=== PATIENT | male | born 1960 | race Caucasian/White ===

== ENCOUNTER → 2017-06-16 | Outpatient (CLI) | payer OTHER ==
[2017-06-16 07:37] LABS: Blood Urea Nitrogen 29 mg/dL (9-20)
--- NOTE | 2017-06-16 08:45 | CT ---
EXAMINATION TYPE: CT angio head DATE OF EXAM: 06/16/2017 COMPARISON: 2016 HISTORY: follow up to cerebral aneurysm (surgery in 2007) CT DLP: 2322 mGycm CONTRAST: [place] with 3-D reconstruction is performed and without and with IV Contrast, patient i njected with 100 mL of Omnipaque 350. Contrast CTA of the [place] was performed 3-D reconstruction imaging obtained at a separate workstation. Unenhanced CT portion of the study of the brain demonstrates a left frontal temporal craniotomy. Ther e is postoperative encephalomalacia left temporal lobe. Changes of aneurysm clipping. Small area of d ecreased attenuation is seen within the left frontal lobe unchanged from prior examination. No eviden ce for intracranial hemorrhage or extra-axial collection at this time. The remaining Vertebrobasilar system as well as intracranial portions of the internal carotid arterie s and their major tributaries are patent. I do not see evidence for sizable aneurysm or vascular mal formation. Please note MRI provides greater sensitivity and specificity. Visualized brain appears g rossly unremarkable. IMPRESSION: No evidence for sizable aneurysm or vascular malformation. Postoperative changes of aneu rysm clipping as discussed.
== END | disposition home or self-care (01) ==
LOC: RADCTMAIN 06:50
PROVIDERS: ATTEND Physician Assistant Medical
DX: I67.1 Cerebral aneurysm, nonruptured (principal); Z98.890 Other specified postprocedural states
CPT/HCPCS: 82565; 84520; 70496; 36415; Q9967

== ENCOUNTER 2017-06-18 06:27 | Day surgery (SDC) | payer OTHER ==
[2017-06-17 08:28] VITALS: BMI 28.0
[~2017-06-18 06:27] MED LIST: LACTATED RINGERS 1,000 ML IV SCH
[2017-06-18] MEDS ORDERED: LACTATED RINGERS 1,000 ML IV ONE (07:02)
[2017-06-18 07:12] VITALS: RESP 18; TEMP 97.6
[2017-06-18 07:17] LABS: Glucose,Whole Blood 128 mg/dL (75-99)
[2017-06-18] MEDS ORDERED: PROPOFOL 10 MG/ML 20 ML VIAL IV ONE (07:52)
[2017-06-18] MEDS ORDERED: LIDOCAINE 1% INJ 10MG/ML (20 ML MDV) ONE (07:52)
--- NOTE | 2017-06-18 07:55 | P.GSHP ---
History of Present Illness H&P Date: 06/18/17 Chief Complaint: Screening colonoscopy 's is a 57-year-old male referred by Dr. Elliott. Patient presents today for screening colonoscopy. He denies a significant GI complaints. 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 History of Any Multi-Drug Resistant Organisms: None Reported Past Surgical History: Heart Catheterization, Hernia Repair, Orthopedic Surgery Additional Past Surgical History / Comment(s): aneursym with clip placement, fx left wrist., feeding tube/later removed, Hx of trach. Past Anesthesia/Blood Transfusion Reactions: No Reported Reaction Past Psychological History: No Psychological Hx Reported Smoking Status: Former smoker Past Alcohol Use History: None Reported Additional Past Alcohol Use History / Comment(s): quit smoking about 32 yrs ago , smoked for < 10 yrs, 1 PPD Past Drug Use History: Marijuana Additional Drug Use History / Comment(s): occasional marijuana use - Past Family History Mother Family Medical History: Cancer Father Family Medical History: Cancer Brother(s) Family Medical History: Deep Vein Thrombosis (DVT) Medications and Allergies Home Medications Medication Instructions Recorded Confirmed Type Albuterol Nebulized [Ventolin 2.5 mg INHALATION DIRECTED PRN 06/07/15 History Nebulized] Lisinopril [Zestril] 10 mg PO HS 06/08/15 06/18/17 History Atorvastatin Calcium [Lipitor] 10 mg PO DAILY 12/24/15 06/18/17 History Empagliflozin/Linagliptin 1 each PO QAM 01/09/16 06/18/17 History [Glyxambi 25 mg-5 mg Tablet] metFORMIN HCL 1,000 mg PO BID 01/09/16 06/18/17 History Breo Inhaler (Unknown Dose) 1 puff INHALATION DAILY 06/17/17 06/18/17 History Allergies Allergy/AdvReac Type Severity Reaction Status Date / Time No Known Allergies Allergy Verified 06/18/17 07:08 Surgical - Exam Vital Signs Temp Pulse Resp BP Pulse Ox 97.6 F 76 18 141/82 93 L 06/18/17 07:09 06/18/17 07:09 06/18/17 07:09 06/18/17 07:09 06/18/17 07:09 - General well developed, no distress - Eyes PERRL - ENT normal pinna - Neck no masses - Respiratory normal expansion - Cardiovascular Rhythm: regular - Abdomen Abdomen: soft, non tender Results - Labs Abnormal Lab Results - Last 24 Hours (Table) 06/18/17 Range/Units 07:13 POC Glucose (mg/dL) 128 H (75-99) mg/dL Assessment and Plan Plan: We'll perform screening colonoscopy.
--- NOTE | 2017-06-18 08:18 | P.OP ---
Date of Procedure: 06/18/17 Preoperative Diagnosis: Screening colonoscopy Postoperative Diagnosis: Diverticulosis Right colon lipoma Procedure(s) Performed: Colonoscopy Anesthesia: MAC Surgeon: Yosi Angel Pathology: other (Right colon biopsies) Condition: stable Disposition: PACU Description of Procedure: The patient's placed on the endoscopy table in the lateral position. He received IV sedation. Digital rectal exam was performed which revealed no abnormalities. The flexible colonoscope was then placed patient anus passed throughout the entire colon. The ileocecal valve was visualized. The cecum, appeared normal. In the right colon there was a sub-mucosa lipoma seen this area is biopsied. The scope was withdrawn and in the transverse colon there was diverticulosis. In the descending sigmoid colon there is moderate diverticulosis. Scope was then brought back the rectum and this appeared normal. Scope was withdrawn for patient.
[2017-06-18 08:44] VITALS: BP 141/80; PULSE 80
== END 2017-06-18 08:56 | disposition home or self-care (01) ==
LOC: ORWHC2ENDO 06:27
PROVIDERS: ATTEND Surgery
DX: Z12.11 Encounter for screening for malignant neoplasm of colon (principal); K57.30 Diverticulosis of large intestine without perforation or abscess without bleeding; D17.79 Benign lipomatous neoplasm of other sites; I10 Essential (primary) hypertension; E11.9 Type 2 diabetes mellitus without complications; J44.9 Chronic obstructive pulmonary disease, unspecified; E78.5 Hyperlipidemia, unspecified; I69.311 Memory deficit following cerebral infarction; Z87.891 Personal history of nicotine dependence; Z79.899 Other long term (current) drug therapy; Z79.84 Long term (current) use of oral hypoglycemic drugs
CPT/HCPCS: 88305; 45380; J2001; J2704

== ENCOUNTER → 2018-06-22 | Outpatient (CLI) | payer OTHER ==
[2018-06-22 12:48] LABS: Blood Urea Nitrogen 23 mg/dL (9-20)
--- NOTE | 2018-06-22 13:55 | CT ---
EXAMINATION TYPE: CT angio head DATE OF EXAM: 06/22/2018 COMPARISON: 06/16/2017 HISTORY: 58-year-old male Follow up cerebral aneurysm. TECHNIQUE: Contiguous axial scanning of the head performed with IV Contrast, patient injected with 10 0 mL of Isovue 370. Coronal/sagittal MIP reconstructions performed. 3-D reconstructions generated on a dedicated independent workstation. CT DLP: 1473.5 mGycm Automated exposure control for dose reduction was used. FINDINGS: Left frontal craniotomy flap redemonstrated. Prior aneurysm clipping on the left near the cavernous sinus region. Stable encephalomalacia anterior left temporal lobe. The bilateral P1 segment posterior cerebral arteries are hypoplastic with persistent origins. The anterior circulation is dominant with small caliber to the vertebral and basilar arteries, unchan ged. No aneurysmal change seen. IMPRESSION: 1. PRIOR ANEURYSM CLIPPING LEFT ANTERIOR CIRCULATION WITH A LEFT FRONTAL CRANIOTOMY FLAP AND UNDERLYI NG ANTERIOR LEFT TEMPORAL LOBE ENCEPHALOMALACIA, ALL UNCHANGED. 2. RELATIVELY SMALLER CALIBER TO THE VERTEBRAL AND BASILAR ARTERIES ON A CONGENITAL BASIS OF QUESTION CLINICAL SIGNIFICANCE. QUERY ANY CHRONIC SYMPTOMS THAT WOULD SUGGEST VERTEBROBASILAR INSUFFICIENCY. 3. HYPOPLASTIC P1 SEGMENTS WITH PERSISTENT ORIGIN OF THE BILATERAL POSTERIOR CEREBRAL ARTERIES FROM THE ANTERIOR CIRCULATION. 4. NO NEW ANEURYSMAL CHANGE SEEN.
== END | disposition home or self-care (01) ==
LOC: RADCTMAIN 12:19
PROVIDERS: ATTEND Family Medicine
DX: G93.89 Other specified disorders of brain (principal); I67.1 Cerebral aneurysm, nonruptured
CPT/HCPCS: 82565; 84520; 70496; 36415; Q9967

== ENCOUNTER → 2020-06-26 | Outpatient (CLI) | payer OTHER ==
--- NOTE | 2020-06-26 09:32 | CT ---
EXAMINATION TYPE: CT brain wo con DATE OF EXAM: 06/26/2020 HISTORY: headaches, history of aneurysm repair CT DLP: 1034 mGycm. Automated Exposure Control for Dose Reduction was Utilized. TECHNIQUE: CT scan of the head is performed without contrast. COMPARISON: CTA head June 22, 2018. FINDINGS: Post left frontal craniotomy changes redemonstrated. There is no acute intracranial hemorr jo or new midline shift identified. Ventricles and sulci within normal limits in size for patient's age. Old infarct left temporal lobe redemonstrated. Left middle cerebral artery aneurysm clip again seen causing adjacent streak artifact. Old infarct left frontal lobe axial image 18 redemonstrated. M ild to moderate mucosal thickening involving the visualized portion of bilateral maxillary sinuses. V isualized globes are intact. IMPRESSION: No acute intracranial hemorrhage or midline shift. There is surgical change from left m iddle cerebral artery aneurysm treatment with old infarct left temporal lobe and smaller infarct deep left frontal region redemonstrated. No significant change from 2019 CTA study.
== END | disposition home or self-care (01) ==
LOC: RADCTMAIN 07:56
PROVIDERS: ATTEND Family Medicine
DX: I63.89 Other cerebral infarction (principal)
CPT/HCPCS: 70450

== ENCOUNTER → 2023-01-09 | Outpatient (CLI) | payer OTHER ==
[2023-01-09 09:25] LABS: African American GFR (CKD) >90 (>60 ml/min/1.73 sqM); Blood Urea Nitrogen 35 mg/dL (9-20); Non-African American GFR(CKD) 79 (>60 ml/min/1.73 sqM)
--- NOTE | 2023-01-09 10:04 | CT ---
EXAMINATION TYPE: CT brain w con DATE OF EXAM: 01/09/2023 COMPARISON: 06/26/2020 HISTORY: Follow up for brain surgery post bleed. CT DLP: 1168 mGycm Automated exposure control for dose reduction was used. CONTRAST: CT scan of the head is performed with IV Contrast, patient injected with 100ml mL of Isovue 300. FINDINGS: There is a large area of encephalomalacia involving the left temporal lobe and left frontal lobe. Sma ller focal area of white matter disease in the left frontal lobe stable. There is no abnormal enhancement. There is no acute intracranial hemorrhage. No midline shift. Cranio roxanne changes are noted and there are surgical changes along the lateral margin of the left cavernous sinus. Mild intracranial atherosclerotic changes and mild chronic sinusitis. Orbits are symmetric. IMPRESSION: 1. Postsurgical changes with a large area of encephalomalacia involving the left temporal lobe. 2. No pathologic enhancement or acute hemorrhage. Stable remote ischemia left frontal white matter.
== END | disposition home or self-care (01) ==
LOC: RADCTMAIN 08:29
PROVIDERS: ATTEND Family Medicine
DX: G93.89 Other specified disorders of brain (principal); I67.82 Cerebral ischemia; R90.82 White matter disease, unspecified; Z98.890 Other specified postprocedural states
CPT/HCPCS: 82565; 84520; 70460; 36415; Q9967

== ENCOUNTER 2023-02-05 06:54 | Day surgery (SDC) | payer OTHER ==
[2023-02-04 11:08] VITALS: BMI 31.7
[~2023-02-05 06:54] MED LIST changes: -LACTATED RINGERS 1,000 ML IV SCH; +LIDOCAINE 1% (10MG/ML) FOR IV START INTRADERMA PRN
[2023-02-05] MEDS: LACTATED RINGERS 1,000 ML IV SCH ×2 (07:38→07:52)
[2023-02-05 07:41] VITALS: TEMP 98.4
[2023-02-05 07:42] LABS: Glucose,Whole Blood 93 mg/dL (70-110)
[2023-02-05] MEDS ORDERED: LIDOCAINE 1% INJ 10MG/ML (20 ML MDV) ONE (07:54)
[2023-02-05] MEDS ORDERED: PROPOFOL 10 MG/ML 20 ML VIAL IV ONE (07:54)
--- NOTE | 2023-02-05 07:57 | P.GSHP ---
History of Present Illness H&P Date: 02/05/23 Chief Complaint: Anemia, possible GI bleed This a 60-year-old male with history of anemia possible GI bleed. Patient presents safer EGD colonoscopy. Patient's a known history of diverticulosis. 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 History of Any Multi-Drug Resistant Organisms: None Reported Past Surgical History: Heart Catheterization, Hernia Repair, Orthopedic Surgery Additional Past Surgical History / Comment(s): aneursym with clip placement, fx left wrist. colonoscopy Past Anesthesia/Blood Transfusion Reactions: No Reported Reaction Additional Past Anesthesia/Blood Transfusion Reaction / Comment(s): no blood transfusion Smoking Status: Current some day smoker - Past Family History Mother Family Medical History: Cancer Additional Family Medical History / Comment(s): unsure Father Family Medical History: Cancer Additional Family Medical History / Comment(s): prostate Brother(s) Family Medical History: Deep Vein Thrombosis (DVT) Medications and Allergies Home Medications Medication Instructions Recorded Confirmed Type Albuterol Nebulized [Ventolin 2.5 mg INHALATION DIRECTED PRN 06/07/15 02/05/23 History Nebulized] lisinopriL [Zestril] 10 mg PO HS 06/08/15 02/05/23 History metFORMIN HCL [Glucophage] 1,000 mg PO BID 01/09/16 02/05/23 History Breo Inhaler (Unknown Dose) 1 puff INHALATION DAILY 06/17/17 02/05/23 History Dulaglutide [Trulicity] 0.75 mg SQ WEEKLY 02/04/23 02/04/23 History Pioglitazone [Actos] 30 mg PO DAILY 02/04/23 02/05/23 History Rosuvastatin [Crestor] 20 mg PO HS 02/04/23 02/05/23 History Allergies Allergy/AdvReac Type Severity Reaction Status Date / Time No Known Allergies Allergy Verified 02/05/23 07:17 Surgical - Exam Vital Signs Temp Pulse Resp BP Pulse Ox 98.4 F 91 16 140/67 97 02/05/23 07:22 02/05/23 07:22 02/05/23 07:22 02/05/23 07:22 02/05/23 07:22 - General well developed, well nourished, no distress - Eyes PERRL - ENT normal pinna - Neck no masses - Respiratory normal expansion - Cardiovascular Rhythm: regular - Abdomen Abdomen: soft, non tender Assessment and Plan Plan: Anemia, possible GI bleed. Patient will undergo EGD and colonoscopy
--- NOTE | 2023-02-05 08:23 | P.OP ---
Date of Procedure: 02/05/23 Preoperative Diagnosis: Anemia Possible GI bleed Postoperative Diagnosis: Antral gastritis Small hiatal hernia Mild esophagitis Diverticulosis Procedure(s) Performed: EGD Colonoscopy Anesthesia: MAC Surgeon: Yosi Angel Pathology: other (Antrum, esophagus) Condition: stable Disposition: PACU Description of Procedure: The patient's placed on the endoscopy table in the lateral position. He received IV sedation. The gastro-/oropharynx passed in the esophagus and stomach. Scope was placed through the pylorus. The first and second portion of the duodenum appeared normal. Scope was then brought back the antrum this. Mildly inflamed. A biopsies performed. The scope was then retroflexed and the remainder of the stomach appeared normal. The patient had a small sliding hiatal hernia. The GE junction was at 39 cm. The distal esophagus. Minimal inflamed. A biopsies performed. The proximal esophagus appeared normal. Scope withdrawn for patient. Next digital rectal exam was performed. This revealed no ebonized. The flexible colonoscope was then placed patient anus and passed throughout the entire colon. The ileocecal valve was visually is. The cecum, ascending and transverse colon appeared normal. In the descending; there is mild diverticular changes. The scope was then brought back the rectum and this appeared normal. Scope withdrawn for patient. There was no evidence of any active GI bleed. Patient may have had anemia related to gastritis.
[2023-02-05 09:12] VITALS: BP 133/76; PULSE 88; RESP 20
== END 2023-02-05 08:58 | disposition home or self-care (01) ==
LOC: ORWHC2ENDO 06:54
PROVIDERS: ATTEND Surgery
DX: K29.50 Unspecified chronic gastritis without bleeding (principal); K57.30 Diverticulosis of large intestine without perforation or abscess without bleeding; K44.9 Diaphragmatic hernia without obstruction or gangrene; K20.90 Esophagitis, unspecified without bleeding; K31.9 Disease of stomach and duodenum, unspecified; D64.9 Anemia, unspecified; J44.89 Other specified chronic obstructive pulmonary disease; I10 Essential (primary) hypertension; E78.5 Hyperlipidemia, unspecified; E11.9 Type 2 diabetes mellitus without complications; F31.9 Bipolar disorder, unspecified; F41.9 Anxiety disorder, unspecified; F17.200 Nicotine dependence, unspecified, uncomplicated; Z86.73 Personal history of transient ischemic attack (TIA), and cerebral infarction without residual deficits; Z79.84 Long term (current) use of oral hypoglycemic drugs; Z79.899 Other long term (current) drug therapy; Z79.85 Long-term (current) use of injectable non-insulin antidiabetic drugs
CPT/HCPCS: 88305; 45378; 43239; J2001; J2704

== ENCOUNTER 2023-06-12 10:40 | Emergency (ER) | payer OTHER ==
--- NOTE | 2023-06-12 10:59 | ED ---
General Adult HPI - General Chief complaint: Shortness of Breath Stated complaint: SOB Time Seen by Provider: 06/12/23 10:52 Source: patient, RN notes reviewed Mode of arrival: ambulatory Limitations: no limitations - History of Present Illness Initial comments: Patient is a pleasant 63-year-old male present to the emergency department with concerns for difficulty breathing. Onset of symptoms was around a week ago. Patient does have productive cough with yellow sputum. Patient had subjective fever 1 week ago, none since. Symptoms are similar to previous asthma/COPD. No calf pain or leg swelling - Related Data Home Medications Medication Instructions Recorded Confirmed metFORMIN HCL [Glucophage] 1,000 mg PO BID 01/09/16 06/12/23 Pioglitazone [Actos] 30 mg PO DAILY 02/04/23 06/12/23 Rosuvastatin [Crestor] 20 mg PO DAILY 02/04/23 06/12/23 EPINEPHrine [Primatene Mist] 1 - 2 puff INHALATION RT-QID PRN 06/12/23 06/12/23 Lisinopril-Hctz 20-12.5 mg 1 tab PO DAILY 06/12/23 06/12/23 [Zestoretic 20-12.5] Omeprazole 20 mg PO AC-BRKFST 06/12/23 06/12/23 Potassium Gluconate 99 mg PO DAILY 06/12/23 06/12/23 Previous Rx's Medication Instructions Recorded Azithromycin [Zithromax Z Pack] 250 mg PO DAILY #6 tab 06/12/23 predniSONE [Deltasone] 20 mg PO BID #10 tab 06/12/23 Allergies Allergy/AdvReac Type Severity Reaction Status Date / Time No Known Allergies Allergy Verified 06/12/23 12:41 Review of Systems ROS Statement: Those systems with pertinent positive or pertinent negative responses have been documented in the HPI. ROS Other: All systems not noted in ROS Statement are negative. 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 History of Any Multi-Drug Resistant Organisms: None Reported Past Surgical History: Heart Catheterization, Hernia Repair, Orthopedic Surgery Additional Past Surgical History / Comment(s): aneursym with clip placement, fx left wrist. colonoscopy Past Anesthesia/Blood Transfusion Reactions: No Reported Reaction Additional Past Anesthesia/Blood Transfusion Reaction / Comment(s): no blood transfusion Past Psychological History: No Psychological Hx Reported Smoking Status: Current some day smoker, Former smoker Past Alcohol Use History: None Reported Past Drug Use History: Marijuana - Past Family History Mother Family Medical History: Cancer Additional Family Medical History / Comment(s): unsure Father Family Medical History: Cancer Additional Family Medical History / Comment(s): prostate Brother(s) Family Medical History: Deep Vein Thrombosis (DVT) General Exam Limitations: no limitations General appearance: alert, in no apparent distress Eye exam: Present: normal appearance Neck exam: Present: normal inspection Respiratory exam: Present: wheezes, decreased breath sounds Cardiovascular Exam: Present: regular rate, normal rhythm GI/Abdominal exam: Present: soft. Absent: tenderness Extremities exam: Present: normal inspection. Absent: pedal edema, calf t enderness Neurological exam: Present: alert Psychiatric exam: Present: normal affect, normal mood Skin exam: Present: normal color Course Vital Signs 06/12/23 06/12/23 06/12/23 10:48 10:50 11:51 Temperature 98.7 F Pulse Rate 96 96 Respiratory 18 16 16 Rate Blood Pressure 120/70 140/97 O2 Sat by Pulse 93 L 95 Oximetry 06/12/23 06/12/23 12:01 12:09 Temperature Pulse Rate 89 87 Respiratory Rate Blood Pressure O2 Sat by Pulse Oximetry EKG Findings - EKG Results: EKG: interpreted by ERMD, sinus rhythm, normal axis, normal QRS, normal ST/T Medical Decision Making - Medical Decision Making Was pt. sent in by a medical professional or institution (, PA, [facility] [facility], urgent care, hospital, or skilled nursing...) When possible be specific @ -No Did you speak to anyone other than the patient for history (EMS, parent, family, police, friend...)? What history was obtained from this source @ - is present and helps provide history including onset of symptoms Did you review nursing and triage notes (agree or disagree)? Why? @ -I reviewed and agree with nursing and triage notes Were old charts reviewed (outside hosp., previous admission, EMS record, old EKG, old radiological studies, urgent care reports/EKG's, skilled nursing records)? Report findings @ -Previous chest x-ray reviewed Differential Diagnosis (chest pain, altered mental status, abdominal pain women, abdominal pain men, vaginal bleeding, weakness, fever, dyspnea, syncope, headache, dizziness, GI bleed, back pain, seizure, CVA, palpatations, mental health, musculoskeletal)? @ -Differential Dyspnea: Coronary syndrome, arrhythmia, tamponade, asthma, COPD, pulmonary embolism, pneumonia, pneumothorax, pulmonary effusion, anaphylaxis, diabetic ketoacidosis, flailed chest, pulmonary contusion, diaphragmatic rupture, anemia, n euromuscular, this is not meant to be an all-inclusive list. EKG interpreted by me (3pts min.). @ -As above X-rays interpreted by me (1pt min.). @ -Chest x-ray shows no acute process CT interpreted by me (1pt min.). @ -None done U/S interpreted by me (1pt. min.). @ -None done What testing was considered but not performed or refused? (CT, X-rays, U/S, labs)? Why? @ -None What meds were considered but not given or refused? Why? @ -None Did you discuss the management of the patient with other professionals (professionals i.e. , PA, [facility] [facility], lab, RT, psych nurse, social worker clinical, front end drupal developer, teacher, guest relation officer, shelter case manager)? Give summary @ -No Was smoking cessation discussed for >3mins.? @ -No Was critical care preformed (if so, how long)? @ -No Were there social determinants of health that impacted care today? How? (Homelessness, low income, unemployed, alcoholism, drug addiction, transportation, low edu. Level, literacy, decrease access to med. care, [facility], rehab)? @ -No Was there de-escalation of care discussed even if they declined (Discuss DNR or withdrawal of care, Hospice)? DNR status @ -No What co-morbidities impacted this encounter? (DM, HTN, Smoking, COPD, CAD, Canc er, CVA, ARF, Chemo, Hep., AIDS, mental health diagnosis, sleep apnea, morbid obesity)? @ -COPD history Was patient admitted / discharged? Hospital course, mention meds given and route, prescriptions, significant lab abnormalities, going to OR and other pertinent info. @ -Patient reevaluated and feels much better. Lung sounds have improved. Patient request discharge home. Pulse ox 95% on room air. Undiagnosed new problem with uncertain prognosis? @ -No Drug Therapy requiring intensive monitoring for toxicity (Heparin, Nitro, Insulin, Cardizem)? @ -No Were any procedures done? @ -No Diagnosis/symptom? @ -COPD exacerbation Acute, or Chronic, or Acute on Chronic? @ -Acute Uncomplicated (without systemic symptoms) or Complicated (systemic symptoms)? @ -Default Side effects of treatment? @ -No Exacerbation, Progression, or Severe Exacerbation? @ -No Poses a threat to life or bodily function? How? (Chest pain, [place], [place], pneumonia, PE, COPD, DKA, ARF, appy, cholecystitis, CVA, Diverticulitis, Homicidal, Suicidal, threat to staff... and all critical care pts) @ -No - Lab Data Result diagrams: 06/12/23 11:04 06/12/23 11:04 Lab Results 06/12/23 06/12/23 06/12/23 Range/Units 11:04 11:04 11:04 WBC 9.4 (3.8-10.6) k/uL RBC 4.70 (4.30-5.90) m/uL Hgb 14.4 (13.0-17.5) gm/dL Hct 43.6 (39.0-53.0) % MCV 92.7 (80.0-100.0) fL MCH 30.7 (25.0-35.0) pg MCHC 33.1 (31.0-37.0) g/dL RDW 13.2 (11.5-15.5) % Plt Count 274 (150-450) k/uL MPV 7.3 Neutrophils % 88 % Lymphocytes % 7 % Monocytes % 4 % Eosinophils % 0 % Basophils % 0 % Neutrophils # 8.2 H (1.3-7.7) k/uL Lymphocytes # 0.6 L (1.0-4.8) k/uL Monocytes # 0.4 (0-1.0) k/uL Eosinophils # 0.0 (0-0.7) k/uL Basophils # 0.0 (0-0.2) k/uL PT 9.9 L (10.0-12.5) sec INR 0.9 (<1.2) APTT 25.1 (22.0-30.0) sec Sodium 136 L (137-145) mmol/L Potassium 4.8 (3.5-5.1) mmol/L Chloride 99 (98-107) mmol/L Carbon Dioxide 23 (22-30) mmol/L Anion Gap 14 mmol/L BUN 22 H (9-20) mg/dL Creatinine 1.04 (0.66-1.25) mg/dL Est GFR (CKD-EPI)AfAm 88 (>60 ml/min/1.73 sqM) Est GFR (CKD-EPI)NonAf 76 (>60 ml/min/1.73 sqM) Glucose 269 H (74-99) mg/dL Plasma Lactic Acid Matthew (0.7-2.0) mmol/L Calcium 9.9 (8.4-10.2) mg/dL Magnesium 1.4 L (1.6-2.3) mg/dL Total Bilirubin 0.5 (0.2-1.3) mg/dL AST 27 (17-59) U/L ALT 14 (4-49) U/L Alkaline Phosphatase 78 (38-126) U/L Total Protein 7.5 (6.3-8.2) g/dL Albumin 4.6 (3.5-5.0) g/dL Influenza Type A (PCR) (Not Detectd) Influenza Type B (PCR) (Not Detectd) RSV (PCR) (Not Detectd) SARS-CoV-2 (PCR) (Not Detectd) 06/12/23 06/12/23 Range/Units 11:04 11:04 WBC (3.8-10.6) k/uL RBC (4.30-5.90) m/uL Hgb (13.0-17.5) gm/dL Hct (39.0-53.0) % MCV (80.0-100.0) fL MCH (25.0-35.0) pg MCHC (31.0-37.0) g/dL RDW (11.5-15.5) % Plt Count (150-450) k/uL MPV Neutrophils % % Lymphocytes % % Monocytes % % Eosinophils % % Basophils % % Neutrophils # (1.3-7.7) k/uL Lymphocytes # (1.0-4.8) k/uL Monocytes # (0-1.0) k/uL Eosinophils # (0-0.7) k/uL Basophils # (0-0.2) k/uL PT (10.0-12.5) sec INR (<1.2) APTT (22.0-30.0) sec Sodium (137-145) mmol/L Potassium (3.5-5.1) mmol/L Chloride (98-107) mmol/L Carbon Dioxide (22-30) mmol/L Anion Gap mmol/L BUN (9-20) mg/dL Creatinine (0.66-1.25) mg/dL Est GFR (CKD-EPI)AfAm (>60 ml/min/1.73 sqM) Est GFR (CKD-EPI)NonAf (>60 ml/min/1.73 sqM) Glucose (74-99) mg/dL Plasma Lactic Acid Matthew 2.2 H* (0.7-2.0) mmol/L Calcium (8.4-10.2) mg/dL Magnesium (1.6-2.3) mg/dL Total Bilirubin (0.2-1.3) mg/dL AST (17-59) U/L ALT (4-49) U/L Alkaline Phosphatase (38-126) U/L Total Protein (6.3-8.2) g/dL Albumin (3.5-5.0) g/dL Influenza Type A (PCR) Not Detected (Not Detectd) Influenza Type B (PCR) Not Detected (Not Detectd) RSV (PCR) Not Detected (Not Detectd) SARS-CoV-2 (PCR) Not Detected (Not Detectd) Disposition Clinical Impression: COPD exacerbation Disposition: HOME SELF-CARE Condition: Stable Instructions (If sedation given, give patient instructions): COPD (Chronic Obstructive Pulmonary Disease) (ED) Additional Instructions: Prescriptions have been sent to pharmacy. Please do follow-up with your primary care physician in the next 1 to 2 days for recheck. Return for difficulty breathing, fever, worsening or changing symptoms or other concerns. Prescriptions: predniSONE [Deltasone] 20 mg PO BID #10 tab Azithromycin [Zithromax Z Pack] 250 mg PO DAILY #6 tab Is patient prescribed a controlled substance at d/c from ED?: No Referrals: Jyoti Garcia MD [Primary Care Provider] - 1-2 days Time of Disposition: 13:39
[2023-06-12] MEDS: methylPREDNISolone SOD SUCCI 125 MG/2 ML VIAL IV STA (11:14)
[2023-06-12 11:26] LABS: Basophils % (A) 0 %; Eosinophils % (A) 0 %; HCT 43.6 % (39.0-53.0); HGB 14.4 gm/dL (13.0-17.5); Lymphocytes # (A) 0.6 k/uL (1.0-4.8); Lymphocytes % (A) 7 %; MCH 30.7 pg (25.0-35.0); MCHC 33.1 g/dL (31.0-37.0); MCV 92.7 fL (80.0-100.0); Mean Platelet Volume 7.3; Monocytes # (A) 0.4 k/uL (0-1.0); Monocytes % (A) 4 %; Neutrophils # (A) 8.2 k/uL (1.3-7.7); Neutrophils % (A) 88 %; Platelet Count 274 k/uL (150-450); RDW 13.2 % (11.5-15.5); WBC 9.4 k/uL (3.8-10.6)
[2023-06-12 11:31] LABS: ALT 14 U/L (4-49); AST 27 U/L (17-59); African American GFR (CKD) 88 (>60 ml/min/1.73 sqM); Albumin 4.6 g/dL (3.5-5.0); Alkaline Phosphatase 78 U/L (38-126); Anion Gap 14 mmol/L; Blood Urea Nitrogen 22 mg/dL (9-20); Calcium 9.9 mg/dL (8.4-10.2); Carbon Dioxide 23 mmol/L (22-30); Chloride 99 mmol/L (98-107); Glucose 269 mg/dL (74-99); Magnesium 1.4 mg/dL (1.6-2.3); Non-African American GFR(CKD) 76 (>60 ml/min/1.73 sqM); Potassium 4.8 mmol/L (3.5-5.1); Sodium 136 mmol/L (137-145); Total Bilirubin 0.5 mg/dL (0.2-1.3); Total Protein 7.5 g/dL (6.3-8.2)
[2023-06-12 11:35] LABS: INR 0.9 (<1.2); Partial Thromboplastin Time 25.1 sec (22.0-30.0); Prothrombin Time 9.9 sec (10.0-12.5)
[2023-06-12 11:46] VITALS: TEMP 98.7
[2023-06-12] MEDS: IPRATROPIUM-ALBUTEROL 3 ML NEB INHALATION STA ×2 (12:00→13:48)
[2023-06-12 12:20] VITALS: RESP 16
--- NOTE | 2023-06-12 12:50 | XR ---
EXAMINATION TYPE: XR chest 2V DATE OF EXAM: 06/12/2023 COMPARISON: 06/07/2015 HISTORY: Shortness of breath TECHNIQUE: Frontal and lateral views of the chest are obtained. FINDINGS: Scattered senescent parenchymal changes noted. Hyperinflation compatible with COPD. No evidence for infiltrate. No evidence for atelectasis. Heart size is stable. Mediastinal structures are stable and grossly unremarkable. No evidence for hilar prominence. Degenerative changes dorsal spine. IMPRESSION: 1. No evidence for acute pulmonary disease.
[2023-06-12 14:02] VITALS: PULSE 90
[2023-06-12 15:08] VITALS: BP 131/72
== END 2023-06-12 14:38 | disposition home or self-care (01) ==
LOC: EC 10:40
DX: J44.1 Chronic obstructive pulmonary disease with (acute) exacerbation (principal); I10 Essential (primary) hypertension; E11.9 Type 2 diabetes mellitus without complications; E78.5 Hyperlipidemia, unspecified; Z79.84 Long term (current) use of oral hypoglycemic drugs; Z79.899 Other long term (current) drug therapy; Z86.73 Personal history of transient ischemic attack (TIA), and cerebral infarction without residual deficits; Z20.822 Contact with and (suspected) exposure to COVID-19
CPT/HCPCS: 36415; 94640 ×2; 93005; 80053; 83605; 83735; 85025; 85610; 85730; 87040; 87636; 71046; 99285; 96374; J2930